=== PATIENT | female | born 1980 | race Caucasian/White ===

== ENCOUNTER 2017-01-30 20:29 | Emergency (ER) | payer MEDICAID ==
[2017-01-30 20:48] VITALS: RESP 18
[2017-01-30] MEDS ORDERED: Sodium Chloride 0.9% 1,000 ML IV ONE (21:21)
[2017-01-30 21:29] LABS: BASO # 0.1 K/uL (0.0-0.2); BASO % 0.6 % (0.0-2.0); EOS # 0.1 K/uL (0.0-0.7); EOS % 0.5 % (0.0-4.0); HEMATOCRIT 35.3 % (34.0-47.0); LYMPH # 3.3 K/uL (1.0-4.3); MEAN CELL VOLUME 83.3 fL (81.0-99.0); MEAN CORPUSCULAR HGB CONC 32.5 g/dL (33.0-37.0); MEAN PLATELET VOLUME 8.6 fL (7.2-11.7); MONO # 0.8 K/uL (0.0-0.8); MONO % 7.7 % (0.0-10.0); RED CELL DISTRIBUTION WIDTH 15.1 % (11.5-14.5); WHITE BLOOD COUNT 9.8 K/uL (4.8-10.8)
[2017-01-30] MEDS ORDERED: Sodium Chloride 0.9% 1,000 ML ONE (21:34)
[2017-01-30 21:40] LABS: CHLORIDE 101 mmol/L (98-107); POTASSIUM 4.3 mmol/L (3.6-5.2); SODIUM 135 mmol/L (132-148)
[2017-01-30 21:42] LABS: ALB/GLOB RATIO 1.2 (1.0-2.1); AST/SGOT 23 U/L (14-36); BILIRUBIN,TOTAL 0.5 mg/dL (0.2-1.3); CARBON DIOXIDE 19 mmol/L (22-30); GFR AFRICAN-AMERICAN > 60; TOTAL PROTEIN 7.1 g/dL (6.3-8.3)
[2017-01-30 21:43] LABS: ALKALINE PHOSPHATASE 142 U/L (38-126); ALT/SGPT 29 U/L (9-52); BLOOD UREA NITROGEN 10 mg/dL (7-17); CALCIUM 8.6 mg/dl (8.6-10.4); GLUCOSE,RANDOM 88 mg/dL (65-105)
[2017-01-30 21:51] LABS: RBC URINE 1 /hpf (0-3); URINE BILIRUBIN NEGATIVE (NEGATIVE); URINE BLOOD 1+ (NEGATIVE); URINE COLOR Yellow (YELLOW); URINE GLUCOSE (UA) NORMAL (Normal); URINE KETONE NEGATIVE (NEGATIVE); URINE LEUKOCYTE ESTERASE NEG Leu/uL (Negative); URINE PROTEIN NEGATIVE (NEGATIVE); URINE UROBILINOGEN NORMAL mg/dL (0.2-1.0); WBC URINE 1 /hpf (0-5)
--- NOTE | 2017-01-30 22:17 | C.PDOC ---
History Of Present Illness Pt states that she notice a little bit of blood only when she wipes after urinating. Denies any pain. Time Seen by Provider: 01/30/17 21:15 Chief Complaint (Nursing): Female Genitourinary History Per: Patient Onset/Duration Of Symptoms: Days (1) Current Symptoms Are (Timing): Still Present Severity: Mild Alleviating Factors: None Additional History Per: Prior Records Last Menstral Period: Pt states she is 12 weeks Past Medical History Reviewed: Historical Data, Nursing Documentation, Vital Signs Vital Signs: Last Vital Signs Temp 98.1 F 01/30/17 20:44 Pulse 82 01/30/17 21:39 Resp 18 01/30/17 21:39 BP 122/69 01/30/17 21:39 Pulse Ox 99 01/30/17 21:39 - Medical History PMH: HTN Surgical History: No Surg Hx - [facility] Procedures MANUAL ASSIST DELIV NEC (02/15/13) Family History: States: Unknown Family Hx - Social History Hx Tobacco Use: No Hx Alcohol Use: No Hx Substance Use: No - Immunization History Hx Tetanus Toxoid Vaccination: No Hx Influenza Vaccination: No Hx Pneumococcal Vaccination: No Review Of Systems Except As Marked, All Systems Reviewed And Found Negative. Constitutional: Negative for: Fever, Weakness Cardiovascular: Negative for: Chest Pain, Light Headedness Respiratory: Negative for: Shortness of Breath Gastrointestinal: Negative for: Vomiting, Abdominal Pain, Diarrhea Genitourinary: Positive for: Hematuria (?), Vaginal Bleeding (?). Negative for : Dysuria, Vaginal Discharge, Pelvic Pain Musculoskeletal: Negative for: Neck Pain, Back Pain Skin: Negative for: Rash Neurological: Negative for: Weakness, Numbness, Seizures, Altered Mental Status Physical Exam - Physical Exam Appears: Non-toxic, No Acute Distress Skin: Normal Color, Warm, Dry, No Rash Head: Atraumatic, Normacephalic Eye(s): bilateral: Normal Inspection, PERRL, EOMI Oral Mucosa: Moist Neck: Normal ROM, Supple Cardiovascular: Rhythm Regular Respiratory: Normal Breath Sounds, No Accessory Muscle Use Gastrointestinal/Abdominal: Soft, No Tenderness Back: No CVA Tenderness Extremity: Normal ROM Neurological/Psych: Oriented x3, Normal Motor, Normal Sensation ED Course And Treatment - Laboratory Results Result Diagrams: 01/30/17 21:25 01/30/17 21:25 Lab Interpretation: No Acute Changes Urine POC: Positive O2 Sat by Pulse Oximetry: 99 Pulse Ox Interpretation: Normal Reassessment Condition: Improved Disposition Counseled Patient/Family Regarding: Studies Performed, Diagnosis, Need For Followup - Disposition Referrals: Ace Locke MD [Staff Provider] - Disposition: HOME/ ROUTINE Disposition Time: 22:18 Condition: STABLE Additional Instructions: Follow up with your Behavioral Therapy Coordinator doctor this week for further evaluation and treatment. Return to the ER if you develop abdominal pain, heavy bleeding, fever , dizziness, worsening of symptoms or if you have any other concerns. Instructions: (ED) Print Language: MOZAMBICAN - Clinical Impression Clinical Impression: Vaginal spotting,
[2017-01-30 22:41] VITALS: BP 118/77; PULSE 84; TEMP 97.9; O2SAT 100
== END 2017-01-30 22:41 | disposition home or self-care (01) ==
LOC: C.ER 20:29
DX: O26.851 Spotting complicating pregnancy, first trimester (principal); Z3A.12 12 weeks gestation of pregnancy
CPT/HCPCS: 80053; 81001; 84702; 84703; 85025; 87086; 87181; 96360; 99285; J7040

== ENCOUNTER 2017-02-04 09:59 | Emergency (ER) | payer MEDICAID ==
[2017-02-04 10:03] VITALS: RESP 18; TEMP 98; O2SAT 100
[2017-02-04] MEDS ORDERED: Sodium Chloride 0.9% 1,000 ML IV ONE (10:29)
[2017-02-04] MEDS ORDERED: Sodium Chloride 0.9% 1,000 ML ONE (10:45)
[2017-02-04 10:49] LABS: BASO % 0.4 % (0.0-2.0); EOS % 0.5 % (0.0-4.0); HEMATOCRIT 35.2 % (34.0-47.0); LYMPH # 2.3 K/uL (1.0-4.3); LYMPH % 28.3 % (20.0-40.0); MEAN CELL VOLUME 82.4 fL (81.0-99.0); MEAN CORPUSCULAR HEMOGLOBIN 27.3 pg (27.0-31.0); MEAN CORPUSCULAR HGB CONC 33.2 g/dL (33.0-37.0); MEAN PLATELET VOLUME 8.9 fL (7.2-11.7); MONO # 0.7 K/uL (0.0-0.8); MONO % 8.2 % (0.0-10.0); RED CELL DISTRIBUTION WIDTH 15.3 % (11.5-14.5); WHITE BLOOD COUNT 8.3 K/uL (4.8-10.8)
[2017-02-04 10:52] LABS: RBC URINE 74 /hpf (0-3); URINE BILIRUBIN NEGATIVE (NEGATIVE); URINE BLOOD 3+ (NEGATIVE); URINE COLOR Yellow (YELLOW); URINE GLUCOSE (UA) NORMAL (Normal); URINE KETONE NEGATIVE (NEGATIVE); URINE LEUKOCYTE ESTERASE 1+ Leu/uL (Negative); URINE PROTEIN NEGATIVE (NEGATIVE); URINE UROBILINOGEN NORMAL mg/dL (0.2-1.0); WBC URINE 49 /hpf (0-5)
[2017-02-04 10:56] LABS: CHLORIDE 101 mmol/L (98-107)
[2017-02-04 10:57] LABS: POTASSIUM 3.8 mmol/L (3.6-5.2); SODIUM 139 mmol/L (132-148)
[2017-02-04 10:59] LABS: GFR AFRICAN-AMERICAN > 60
[2017-02-04 11:00] LABS: ALB/GLOB RATIO 1.2 (1.0-2.1); ALKALINE PHOSPHATASE 145 U/L (38-126); ALT/SGPT 32 U/L (9-52); AST/SGOT 19 U/L (14-36); BILIRUBIN,TOTAL 0.3 mg/dL (0.2-1.3); BLOOD UREA NITROGEN 9 mg/dL (7-17); CALCIUM 8.7 mg/dl (8.6-10.4); CARBON DIOXIDE 24 mmol/L (22-30); GLUCOSE,RANDOM 86 mg/dL (65-105); TOTAL PROTEIN 7.1 g/dL (6.3-8.3)
--- NOTE | 2017-02-04 12:03 | C.PDOC ---
History Of Present Illness 36-year-old female presents to the emergency department with complaints of intermittent pelvic pain, low back pain and bright red vaginal spotting that started five days ago. Patient was seen in ED and also seen by OBGYN three days ago, started on Ampicillin PO for UTI (by PHARMACY RETAIL SUPPORT SPECIALIST). She is currently eleven weeks (). Patient denies dysuria, fever, vomiting, diarrhea, chest pain, SOB. Time Seen by Provider: 02/04/17 10:04 Chief Complaint (Nursing): Female Genitourinary History Per: Patient History/Exam Limitations: no limitations Onset/Duration Of Symptoms: Days Current Symptoms Are (Timing): Still Present Severity: Mild Past Medical History Reviewed: Historical Data, Nursing Documentation, Vital Signs Vital Signs: Last Vital Signs Temp 98 F 02/04/17 10:02 Pulse 72 02/04/17 13:31 Resp 18 02/04/17 13:31 BP 120/72 02/04/17 13:31 Pulse Ox 100 02/07/17 10:39 - Medical History PMH: Anemia, HTN - [facility] Procedures MANUAL ASSIST DELIV NEC (02/15/13) Family History: States: No Known Family Hx - Social History Hx Tobacco Use: No Hx Alcohol Use: No Hx Substance Use: No - Immunization History Hx Tetanus Toxoid Vaccination: No Hx Influenza Vaccination: No Hx Pneumococcal Vaccination: No Review Of Systems Except As Marked, All Systems Reviewed And Found Negative. Constitutional: Negative for: Fever Cardiovascular: Negative for: Chest Pain, Palpitations Respiratory: Negative for: Cough, Shortness of Breath Gastrointestinal: Negative for: Nausea, Vomiting Genitourinary: Positive for: Vaginal Bleeding, Pelvic Pain. Negative for: Dysuria Musculoskeletal: Positive for: Back Pain Neurological: Negative for: Weakness, Numbness, Headache Physical Exam - Physical Exam Appears: Well, Non-toxic Skin: Warm, Dry, No Rash Head: Normacephalic Eye(s): bilateral: Normal Inspection Oral Mucosa: Moist Cardiovascular: Rhythm Regular Respiratory: Normal Breath Sounds, No Rales, No Rhonchi, No Wheezing Gastrointestinal/Abdominal: Bowel Sounds, Soft, Tenderness (Mild, suprapubic TTP , (-)McBurney's), No Guarding, No Rebound Back: Normal Inspection, No CVA Tenderness Extremity: Normal ROM Neurological/Psych: Oriented x3 ED Course And Treatment - Laboratory Results Result Diagrams: 02/04/17 10:43 02/04/17 10:43 O2 Sat by Pulse Oximetry: 100 (on RA) Pulse Ox Interpretation: Normal - CT Scan/US TRANSVAGINAL US Other Rad Studies (CT/US): Read By Radiologist, Radiology Report Reviewed CT/US Interpretation: Accession No. : [id number]. Patient Name / ID : MAURO NEWMAN / [id number]. Exam Date : 02/04/2017 11:14:13 ( Approved ). Study Comment : Sex / Age : F / 36Y. Creator : VIRGINIA MUSA MD. Dictator : VIRGINIA MUSA MD. Sheet Rock Finisher : Internal Combustion Engine Subassembler : VIRGINIA MUSA MD. Approver2 : Report Date : 02/04/2017 12:06:20. My Comment : . PROCEDURE: OB Pelvic Ultrasound. HISTORY: PELVIC PAIN, BLEEDING, . COMPARISON: None available. FINDINGS: UTERUS: Gestational sac: Single irregular intrauterine gestation. No cardiac activity is documented. age (Ultrasound estimated) : 7 weeks and 2 days. Acllie-gestational hemorrhage: None. Date of delivery ( Ultrasound estimated) : 09/21/2017. Uterus measures 7.8 x 6.2 x 7.0 cm. Retroverted and normal in size. There is a small subcentimeter cyst in the anterior wall of the uterus. CERVIX: Long and closed. No cervical abnormality seen. RIGHT OVARY: Measures 3.1 x 1.9 x 3.1 cm. No mass lesion. Normal flow. LEFT OVARY: Measures 3.9 x 2.4 x 3.8 cm. No solid mass. Normal flow. There is a 2.3 x 2.1 x 2.2 cm cyst with internal peripheral nodularity likely a complicated cyst with. FREE FLUID: None. OTHER FINDINGS: None. IMPRESSION: Single 8 irregular intrauterine gestational sac with mean gestational age of 7 weeks and 2 days. No cardiac activity is documented on this examination concerning for early failure. Progress Note: Blood work, UA, transvaginal US ordered and reviewed. Patient given IV NS bolus, PO tylenol. Blood type O+, no rhogham needed. Reevaluation Time: 13:10 Reassessment Condition: Improved (On reassessment, patient is resting comfortably, in no current pain/distress. On exam, abdomen is soft and nontender. Based on US and low beta, suspect patient is having miscarriage. Explained this to to patient, and she understands her bleeding and cramping will worsen. Patient also understands she needs follow up with her security site supervisor in 1- 2 days for further evaluation. Rx given for pain medication, and she understands she should return to ED if she has concerning/worsening symptoms.) Disposition Counseled Patient/Family Regarding: Studies Performed, Diagnosis, Need For Followup, Rx Given - Disposition Referrals: Ace Locke MD [Staff Provider] - Disposition: HOME/ ROUTINE Disposition Time: 13:10 Condition: STABLE Additional Instructions: SEGUIMIENTO CON MEHTA GINECLOGO EN 1-2 PLAZA USE MEDICAMENTOS PARA EL DOLOR IVETTE SEA NECESARIO DEVUELVA A LA SAMY DE EMERGENCIA SI LOS SNTOMAS EMPEORARAN Prescriptions: oxyCODONE/Acetaminophen [Percocet 5/325 mg Tab] 1 tab PO QID PRN #15 tab PRN Reason: Pain Instructions: Spontaneous Miscarriage (ED) Forms: [employer] (Croatian) Print Language: BULGARIAN - POA Present On Arrival: None - Clinical Impression Clinical Impression: Spontaneous miscarriage - Scribe Statement The provider has reviewed the documentation as recorded by the Scribe (Oleg Morales) All medical record entries made by the Scribe were at my direction and personally dictated by me. I have reviewed the chart and agree that the record accurately reflects my personal performance of the history, physical exam, medical decision making, and the department course for this patient. I have also personally directed, reviewed, and agree with the discharge instructions and disposition.
--- NOTE | 2017-02-04 12:08 | US ---
PROCEDURE: OB Pelvic Ultrasound HISTORY: PELVIC PAIN, BLEEDING, COMPARISON: None available. FINDINGS: UTERUS: Gestational sac: Single irregular intrauterine gestation. No cardiac activity is documented. age (Ultrasound estimated): 7 weeks and 2 days Callie-gestational hemorrhage: None. Date of delivery (Ultrasound estimated) : 09/21/2017 Uterus measures 7.8 x 6.2 x 7.0 cm. Retroverted and normal in size. There is a small subcentimeter cyst in the anterior wall of the uterus. CERVIX: Long and closed. No cervical abnormality seen. RIGHT OVARY: Measures 3.1 x 1.9 x 3.1 cm. No mass lesion. Normal flow. LEFT OVARY: Measures 3.9 x 2.4 x 3.8 cm. No solid mass. Normal flow. There is a 2.3 x 2.1 x 2.2 cm cyst with internal peripheral nodularity likely a complicated cyst with FREE FLUID: None. OTHER FINDINGS: None. IMPRESSION: Single 8 irregular intrauterine gestational sac with mean gestational age of 7 weeks and 2 days. No cardiac activity is documented on this examination concerning for early failure.
[2017-02-04 13:32] VITALS: BP 120/72; PULSE 72
== END 2017-02-04 13:32 | disposition home or self-care (01) ==
LOC: C.ER 09:59
DX: O03.9 Complete or unspecified spontaneous abortion without complication (principal); Z3A.01 Less than 8 weeks gestation of pregnancy
CPT/HCPCS: 76805; 76817; 80053; 81001; 84702; 85025; 86850; 86900; 87086; 96360; 99285; J7040

== ENCOUNTER 2017-02-05 20:24 | Emergency (ER) | payer MEDICAID ==
--- NOTE | 2017-02-05 20:54 | C.PDOC ---
History Of Present Illness 36 y/o brought to ED by EMS with complaints of increased vaginal bleeding with clots noted since yesterday. Patient states vaginal bleeding started 1 week ago but is more severe now. Patient was seen at ED on 02/04/17 and an US was performed that showed single 8 irregular intrauterine gestational sac with mean gestational age of 7 weeks and 2 days. No cardiac activity is documented on this examination concerning for early failure. Patient denies fever , chills, back pain, n/v/d or any other complaints at this time. VIA TRANS CO INCR VAG BLEED AND PELVIC PAIN SINCE YEST. PS BLEEDING X 1 WEEK BUT NOW MORE SEVERE. +CLOTS. US 02/04 Single 8 irregular intrauterine gestational sac with mean gestational age of 7 weeks and 2 days. No cardiac activity is documented on this examination concerning for early failure. DENIES OTHER ASSOC SX EXAM MILD DIST NONTOXIC NO PALLOR ABD Chief Complaint (Nursing): Abdominal Pain History Per: Patient History/Exam Limitations: no limitations Onset/Duration Of Symptoms: Days Current Symptoms Are (Timing): Still Present Past Medical History Reviewed: Historical Data, Nursing Documentation, Vital Signs Vital Signs: Last Vital Signs Temp 98.0 F 02/05/17 21:58 Pulse 86 02/06/17 00:01 Resp 20 02/06/17 00:01 BP 109/50 L 02/06/17 00:01 Pulse Ox 100 02/06/17 00:01 - Medical History PMH: Anemia, HTN - [facility] Procedures MANUAL ASSIST DELIV NEC (02/15/13) Family History: States: No Known Family Hx - Social History Hx Tobacco Use: No Hx Alcohol Use: No Hx Substance Use: No - Immunization History Hx Tetanus Toxoid Vaccination: No Hx Influenza Vaccination: No Hx Pneumococcal Vaccination: No Review Of Systems Except As Marked, All Systems Reviewed And Found Negative. Constitutional: Negative for: Fever, Chills Gastrointestinal: Positive for: Abdominal Pain. Negative for: Nausea, Vomiting , Diarrhea Genitourinary: Positive for: Vaginal Bleeding Musculoskeletal: Negative for: Back Pain Skin: Negative for: Rash Physical Exam - Physical Exam Appears: Non-toxic, Other (Mild distress) Skin: Normal Color, Warm, No Pale Head: Atraumatic, Normacephalic Oral Mucosa: Moist Chest: Symmetrical Gastrointestinal/Abdominal: Soft, No Tenderness, No Guarding, No Rebound Pelvic: Vaginal Bleeding (Active bleeding on vault), Cervix Open, Other (RN hamm log sawyer, Questionable POC removed from vagina) Neurological/Psych: Oriented x3, Normal Speech, Normal Cognition ED Course And Treatment - Laboratory Results Result Diagrams: 02/05/17 21:50 O2 Sat by Pulse Oximetry: 100 (RA) Pulse Ox Interpretation: Normal - CT Scan/US Transvaginal US Other Rad Studies (CT/US): Read By Radiologist, Radiology Report Reviewed CT/US Interpretation: EXAM: US , Transvaginal. CLINICAL HISTORY: 36 years old, female; Signs and symptoms; Other: Bleeding; ; Patient HX: Beta 2325.90;. Additional info: Vag bleed RO retained poc. TECHNIQUE: Real- time transvaginal obstetrical ultrasound of the maternal pelvis and a first trimester . with image documentation. Transvaginal imaging was used for better evaluation of the fetus and. adnexa. COMPARISON: No relevant prior studies available. FINDINGS: Gestation: No intrauterine gestational sac. Uterus/cervix: Retroverted uterus. Endometrium: 1.6 cm in thickness, heterogeneous with increased. vascularity. Closed cervix. Ovaries: RIGHT ovary : 1.2 x 0.8 x 1.3 cm anechoic lesion. LEFT ovary: 2.4 x 2.1 x 1.9 cm anechoic. lesion. No adnexal masses. Free fluid: No significant free fluid. IMPRESSION: 1. No intrauterine gestation. DDX: Early IUP, missed , ectopic . 2. Thickened, heterogeneous endometrium. RPOC not excluded. 3. RIGHT ovarian cyst. 4. LEFT ovarian cyst. 5. Incidental/non-acute findings are described above. Progress - Re-Evaluation Re-evaluation Note: 02/05/17 23:12 d/w dr parry AWARE OF US AND ER FINDINGS. DC FU OFFICE, DOXY 100 MG BID X 5 DAYS VSS PS FEELS BETTER - Data Reviewed Data Reviewed: Lab, Diagnostic imaging, Old records - Continuity of Care Discussed pt. case with internet sales consultant/specialty: Obstetrics/Gynecology Disposition Counseled Patient/Family Regarding: Studies Performed, Diagnosis, Need For Followup, Rx Given - Disposition Referrals: Ace Locke MD [Staff Provider] - Disposition: HOME/ ROUTINE Disposition Time: 23:13 Condition: IMPROVED Prescriptions: Doxycycline Hyclate [Doryx] 100 mg PO BID #10 cap Instructions: Spontaneous Miscarriage (ED) Forms: [facility] [employer] [facility] (Djiboutian), Work Excuse Print Language: FRENCH - Clinical Impression Clinical Impression: Spontaneous miscarriage - Scribe Statement The provider has reviewed the documentation as recorded by the Sadafibrosa elena Retana All medical record entries made by the Sadafibe were at my direction and personally dictated by me. I have reviewed the chart and agree that the record accurately reflects my personal performance of the history, physical exam, medical decision making, and the department course for this patient. I have also personally directed, reviewed, and agree with the discharge instructions and disposition.
[2017-02-05 21:59] VITALS: TEMP 98
[2017-02-05 22:01] LABS: HEMOGLOBIN 11.3 g/dL (11.0-16.0); MEAN CELL VOLUME 81.7 fL (81.0-99.0); MEAN CORPUSCULAR HEMOGLOBIN 27.7 pg (27.0-31.0); MEAN CORPUSCULAR HGB CONC 33.9 g/dL (33.0-37.0); RBC 4.09 Mil/uL (3.80-5.20); RED CELL DISTRIBUTION WIDTH 15.2 % (11.5-14.5); WHITE BLOOD COUNT 10.6 K/uL (4.8-10.8)
[2017-02-05 22:56] VITALS: RESP 20
--- NOTE | 2017-02-05 22:58 | US ---
EXAM: US , Transvaginal CLINICAL HISTORY: 36 years old, female; Signs and symptoms; Other: Bleeding; ; Patient HX: Beta 2325.90; Additional info: Vag bleed RO retained poc TECHNIQUE: Real-time transvaginal obstetrical ultrasound of the maternal pelvis and a first trimester with image documentation. Transvaginal imaging was used for better evaluation of the fetus and adnexa. COMPARISON: No relevant prior studies available. FINDINGS: Gestation: No intrauterine gestational sac. Uterus/cervix: Retroverted uterus. Endometrium: 1.6 cm in thickness, heterogeneous with increased vascularity. Closed cervix. Ovaries: RIGHT ovary: 1.2 x 0.8 x 1.3 cm anechoic lesion. LEFT ovary: 2.4 x 2.1 x 1.9 cm anechoic lesion. No adnexal masses. Free fluid: No significant free fluid. IMPRESSION: 1. No intrauterine gestation. DDX: Early IUP, missed , ectopic . 2. Thickened, heterogeneous endometrium. RPOC not excluded. 3. RIGHT ovarian cyst. 4. LEFT ovarian cyst. 5. Incidental/non-acute findings are described above.
[2017-02-05 23:14] VITALS: O2SAT 100
[2017-02-06 00:02] VITALS: BP 109/50; PULSE 86
== END 2017-02-06 01:30 | disposition home or self-care (01) ==
LOC: C.ER 20:24
DX: O03.9 Complete or unspecified spontaneous abortion without complication (principal)
CPT/HCPCS: 76830; 84702; 85027; 88305; 96372; 96374; 99285; J1885; J2550